=== PATIENT | male | born 1965 | race Caucasian/White ===

== ENCOUNTER 2021-09-10 20:57 | Emergency (ER) | payer BC ==
[~2021-09-10] VITALS: Ht 182.9 cm; Wt 100.0 kg
[2021-09-10] MEDS ORDERED: LOTENSIN HCT1 TA1 PO (21:30)
[2021-09-10] MEDS ORDERED: CRESTOR5 MG PO (21:30)
[2021-09-10] MEDS ORDERED: BAYER CHEWABLE81 MG PO (21:31)
[2021-09-10 21:53] LABS: HEMATOCRIT 51.2 % (39.0-50.0); HEMOGLOBIN 17.3 g/dl (14.0-18.0); IMMATURE GRANULOCYTES 0.2 % (0.0-5.0); MEAN CORPUSCULAR HGB 30.4 pG CALC (26.0-32.0); MEAN CORPUSCULAR HGB CONC 33.8 g/dL CAL (32.0-36.0); NEUT# 6.15 thou/uL (1.82-7.42); RED BLOOD COUNT 5.69 mill/uL (4.70-6.10); RED CELL DISTRI WIDTH 12.7 % (11.5-15.5)
[2021-09-10 22:11] LABS: ALBUMIN 4.7 g/dL (3.2-5.0); ALKALINE PHOSPHATASE 75 u/l (38-126); ANION GAP 13 (6-22 (CALC)); BILIRUBIN, TOTAL 1.3 mg/dL (0.0-1.4); BUN 17 mg/dL (9-20); BUN/CREATININE RATIO 15 (12-20 (CALC)); CARBON DIOXIDE 28 mmol/l (22-30); CHLORIDE 101 mmol/l (95-108); CREATININE 1.1 mg/dL (0.7-1.3); GFR > 60 ML/MIN (>=60 (CALC)); GFR FOR AFR.AMER. > 60 ML/MIN (>=60 (CALC)); POTASSIUM 3.9 mmol/l (3.5-5.1); SGOT/AST 31 u/l (17-59); SODIUM 138 mmol/l (137-146); TOTAL PROTEIN 8.5 g/dL (6.3-8.2)
[2021-09-10 22:12] LABS: ACT PARTIAL THROMBO TIME 24.3 SECONDS (20.0-32.5)
[2021-09-10 22:21] LABS: MYOGLOBIN 124 ng/mL (0 - 121)
[2021-09-10 22:29] LABS: URINE BILIRUBIN - DIPSTICK NEGATIVE (NEGATIVE); URINE BLOOD DIPSTICK NEGATIVE (NEGATIVE); URINE COLOR YELLOW; URINE GLUCOSE - DIPSTICK NEGATIVE (NEGATIVE); URINE KETONE NEGATIVE (NEGATIVE); URINE LEUK ESTERASE NEGATIVE (NEGATIVE); URINE NITRITE - DIPSTICK NEGATIVE (Negative); URINE PROTEIN - DIPSTICK NEGATIVE (NEG-TRACE); URINE SPECIFIC GRAVITY 1.015; URINE UROBILINOGEN - DIPSTICK 0.2 E.U./dL (0.2)
[2021-09-10 23:55] VITALS: BP 171/77
== END 2021-09-10 23:55 | disposition short-term general hospital (02) | DRG 93 ==
LOC: ED 20:57
PROVIDERS: Family Medicine
DX: R20.0 Anesthesia of skin (principal); R20.2 Paresthesia of skin; R53.1 Weakness; M54.50 Low back pain, unspecified; I10 Essential (primary) hypertension
CPT/HCPCS: Q9967

== ENCOUNTER 2022-06-01 09:06 | Emergency (ER) | payer BC ==
[~2022-06-01] VITALS: Ht 182.9 cm; Wt 114.0 kg
[~2022-06-01 09:06] MED LIST: BAYER CHEWABLE81 MG PO; CRESTOR5 MG PO; LOTENSIN HCT1 TA1 PO
[2022-06-01] MEDS ORDERED: BISOPRL/HC5 MG/6.25 PO (09:22)
[2022-06-01] MEDS ORDERED: COQ10200 MG PO (09:23)
[2022-06-01] MEDS ORDERED: CRESTOR5 MG PO (09:23)
[2022-06-01] MEDS ORDERED: VITAMIN D PO (09:23)
[2022-06-01] MEDS ORDERED: CENTRUM ADULTS1 TAB (09:24)
[2022-06-01] MEDS ORDERED: VITAMIN C1000 MG PO (09:24)
[2022-06-01] MEDS ORDERED: KRILL OIL (09:24)
[2022-06-01] MEDS ORDERED: AMBIEN5 MG PO (09:25)
[2022-06-01] MEDS ORDERED: VITAMIN E400 UNIT PO (09:25)
[2022-06-01 09:36] LABS: HEMATOCRIT 51.3 % (39.0-50.0); HEMOGLOBIN 17.3 g/dl (14.0-18.0); IMMATURE GRANULOCYTES 0.2 % (0.0-5.0); MEAN CELL VOLUME 88.6 fL CALC (80.0-100.0); MEAN CORPUSCULAR HGB 29.9 pG CALC (26.0-32.0); MEAN CORPUSCULAR HGB CONC 33.7 g/dL CAL (32.0-36.0); NEUT# 8.23 thou/uL (1.82-7.42); RED BLOOD COUNT 5.79 mill/uL (4.70-6.10); RED CELL DISTRI WIDTH 12.7 % (11.5-15.5); URINE BILIRUBIN - DIPSTICK NEGATIVE (NEGATIVE); URINE BLOOD DIPSTICK LARGE (NEGATIVE); URINE COLOR YELLOW; URINE GLUCOSE - DIPSTICK NEGATIVE (NEGATIVE); URINE KETONE NEGATIVE (NEGATIVE); URINE LEUK ESTERASE NEGATIVE (NEGATIVE); URINE PH 5.5 (4.5-8.0); URINE PROTEIN - DIPSTICK NEGATIVE (NEG-TRACE); URINE SPECIFIC GRAVITY 1.025; URINE UROBILINOGEN - DIPSTICK 0.2 E.U./dL (0.2)
[2022-06-01 09:37] LABS: URINE NITRITE - DIPSTICK NEGATIVE (Negative)
[2022-06-01 09:50] LABS: ALBUMIN 4.8 g/dL (3.2-5.0); ALKALINE PHOSPHATASE 79 u/l (38-126); ANION GAP 18 (6-22 (CALC)); BILIRUBIN, TOTAL 1.5 mg/dL (0.0-1.4); BUN 17 mg/dL (9-20); BUN/CREATININE RATIO 17 (12-20 (CALC)); CARBON DIOXIDE 23 mmol/l (22-30); CHLORIDE 102 mmol/l (95-108); GFR FOR AFR.AMER. > 60 ML/MIN (>=60 (CALC)); GFR OTHER RACES > 60 ML/MIN (>=60 (CALC)); LIPASE 99 u/l (23-300); POTASSIUM 4.2 mmol/l (3.5-5.1); SGOT/AST 44 u/l (17-59); SODIUM 139 mmol/l (137-146); TOTAL PROTEIN 8.2 g/dL (6.3-8.2)
[2022-06-01] MEDS ORDERED: ZOFRAN4 MG/TAB PO (12:02)
[2022-06-01] MEDS ORDERED: ALLERGY RELF10 M3 PO (12:02)
[2022-06-01] MEDS ORDERED: FLONASE AL50 MCG/ACT (12:02)
[2022-06-01] MEDS ORDERED: DECADRON4 MG PO (12:02)
[2022-06-01] MEDS ORDERED: CEPHALEXIN500 M1 PO (12:14)
[2022-06-01 12:20] VITALS: BP 139/92
== END 2022-06-01 12:30 | disposition home or self-care (01) | DRG 153 ==
LOC: ED 09:06
PROVIDERS: Family Medicine
DX: J30.2 Other seasonal allergic rhinitis (principal); R31.9 Hematuria, unspecified; K59.00 Constipation, unspecified; E78.5 Hyperlipidemia, unspecified; I10 Essential (primary) hypertension; H40.9 Unspecified glaucoma; Z77.120 Contact with and (suspected) exposure to mold (toxic)